=== PATIENT | female | born 1950 | race African-American/Black ===

== ENCOUNTER 2020-08-25 12:01 | Outpatient (CLI) | payer MEDICARE, SELFPAY ==
--- NOTE | ~2020-08-25 | DEXA_ITS ---
Bone Density Report Name: Dottie Gold Age: 70 Sex: Female Ethnicity: Black Date of : 1950 Indication: postmenopausal; hysterectomy; Referring Provider: SARINA HERNANDEZ Study: Bone densitometry was performed. Exam Date: August 25, 2020 Accession number: [id number] Bone Density: Region BMD T-score Z-score Classification AP Spine (L1-L4) 1.017 -0.3 1.1 Normal Femoral Neck (Left) 0.662 -1.7 -0.6 Osteopenia Total Hip (Left) 1.020 0.6 1.1 Normal Total Hip Bilateral Avg 0.967 0.2 0.8 Normal Femoral Neck (Right) 0.632 -2.0 -0.8 Osteopenia Total Hip (Right) 0.914 -0.2 0.4 Normal World Health Organization criteria for BMD impression classify patients as: Normal (T-score at or above -1.0), Osteopenia (T-score between -1.0 and -2.5), or Osteoporosis (T-score at or below -2.5). 10-year Fracture Risk(1): Major Osteoporotic Fracture 4.3% Hip Fracture 0.7% Reported Risk Factors: [place] (Black), Neck BMD=0.632, BMI=43.0 (1) FRAX(R) Version 3.08. Fracture probability calculated for an untreated patient. Fracture probability may be lower if the patient has received treatment. Previous Exams: Region Exam Age BMD T-score BMD Change BMD Change Date g/cm2 vs Baseline vs Previous AP Spine(L1-L4) 08/25/2020 70 1.017 -0.3 0.002(0.2%)# 0.013(1.3%) 08/19/2015 65 1.004 -0.4 -0.011(-1.1%)# 0.011(1.1%) 06/16/2013 62 0.993 -0.5 -0.022(-2.1%)# -0.045(-4.3%)# 06/09/2011 60 1.038 -0.1 0.023(2.3%)* 0.036(3.6%)* 05/27/2009 58 1.002 -0.4 -0.013(-1.3%) -0.013(-1.3%) 12/01/2005 55 1.015 -0.3 Total Hip(Left) 08/25/2020 70 1.020 0.6 -0.028(-2.7%)# 0.022(2.2%)# 08/19/2015 65 0.998 0.5 -0.050(-4.8%)# -0.065(-6.1%)# 06/16/2013 62 1.062 1.0 0.015(1.4%)# 0.127(13.5%)# 06/09/2011 60 0.936 -0.1 -0.112(-10.7%) -0.104(-10.0%) 05/27/2009 58 1.039 0.8 -0.009(-0.8%) -0.009(-0.8%) 12/01/2005 55 1.048 0.9 Total Hip(Right) 08/25/2020 70 0.914 -0.2 -0.086(-8.6%)# -0.062(-6.3%)* 08/19/2015 65 0.976 0.3 -0.024(-2.4%)# -0.036(-3.6%)* 06/16/2013 62 1.012 0.6 0.012(1.2%)# -0.010(-1.0%)# 06/09/2011 60 1.022 0.7 0.022(2.2%) 0.042(4.3%)* 05/27/2009 58 0.980 0.3 -0.020(-2.0%) -0.020(-2.0%) 12/01/2005 55 1.000 0.5 *Denotes significance at 95% confidence level, LSC for AP Spine = 0.022 g/cm2, LSC for Total Hip = 0.027 g/cm2 Clinical Information Provided by Patient: Has the following medical c
--- NOTE | ~2020-08-25 | MM_ITS ---
EXAMINATION: MM screening [facility] BI w [facility] HISTORY: Screening mammogram, family history of breast cancer in her sister. TECHNIQUE: Craniocaudal and mediolateral oblique 3-D tomosynthesis images were obtained and synthetic 2-D images were generated. CAD analysis was submitted and interpreted. COMPARISON: 07/09/2015, 06/25/2015, 06/18/2014 BREAST PARENCHYMAL COMPOSITION: There are scattered areas of fibroglandular density. FINDINGS: Bilateral breast masses demonstrate interval decrease in size, consistent with benign findi ngs. There is no evidence of suspicious mass, calcification, or architectural distortion to suggest m alignancy in either breast. There has been no suspicious interval change. IMPRESSION: 1. No mammographic evidence of malignancy. 2. Recommend routine screening mammography in one year. BI-RADS Category 2: Benign finding(s). Reviewed, dictated and finalized at location A.
== END 2020-08-25 12:02 | disposition home or self-care (01) ==
PROVIDERS: Visit Provider Obstetrics & Gynecology
DX: Z12.31 Encounter for screening mammogram for malignant neoplasm of breast (principal); Z78.0 Asymptomatic menopausal state; M85.852 Other specified disorders of bone density and structure, left thigh; M85.851 Other specified disorders of bone density and structure, right thigh
CPT/HCPCS: 77063; 77067; 77080

== ENCOUNTER 2021-09-28 12:31 | Outpatient (CLI) | payer MEDICARE, SELFPAY ==
--- NOTE | ~2021-09-28 | MM_ITS ---
EXAMINATION: MM screening [facility] w [facility] HISTORY: Screening mammogram TECHNIQUE: Craniocaudal and mediolateral oblique 3-D tomosynthesis images were obtained and synthetic 2-D images were generated. CAD analysis was submitted and interpreted. COMPARISON: 08/25/2020 bilateral screening mammogram 07/09/2015 diagnostic left mammogram 06/25/2015 bilateral screening mammogram BREAST PARENCHYMAL COMPOSITION: There are scattered areas of fibroglandular density. FINDINGS: There is a biopsy marker on the left; history of prior benign left breast biopsy in 2016. Scattered bilateral benign calcifications. Occasional bilateral benign circumscribed small masses and scattered bilateral benign calcifications are again noted. There is no evidence of suspicious mass, calcification, or architectural distortion to suggest malign efrain in either breast. There has been no suspicious interval change. IMPRESSION: 1. No mammographic evidence of malignancy. 2. Recommend routine screening mammography in one year. BI-RADS Category 2: Benign finding(s). Reviewed, dictated and finalized at location A. T GRADER OPERATOR
== END 2021-09-28 12:32 | disposition home or self-care (01) ==
LOC: ANHIMG 12:34
PROVIDERS: PCP Family Medicine; Visit Provider Obstetrics & Gynecology
DX: Z12.31 Encounter for screening mammogram for malignant neoplasm of breast (principal)
CPT/HCPCS: 77063; 77067

== ENCOUNTER 2022-11-09 15:01 | Outpatient (CLI) | payer MEDICARE, SELFPAY ==
--- NOTE | ~2022-11-09 | MM_ITS ---
EXAMINATION: MM screening [facility] w [facility] HISTORY: Screening TECHNIQUE: Craniocaudal and mediolateral oblique 3-D tomosynthesis images were obtained and synthetic 2-D images were generated. CAD analysis was submitted and interpreted. COMPARISON: Comparison to multiple prior studies sequentially, with oldest reviewed study dated 06/16. BREAST PARENCHYMAL COMPOSITION: Breast composed of scattered areas of fibroglandular density FINDINGS: Stable benign-appearing bilateral breast masses. There is no evidence of suspicious mass, c alcification, or architectural distortion to suggest malignancy in either breast. There has been no s uspicious interval change. IMPRESSION: 1. No mammographic evidence of malignancy. 2. Recommend routine screening mammography in one year. BI-RADS Category 2: Benign finding(s). Reviewed, dictated and finalized at location A. GENCY VEHICLE DISPATCHER
== END 2022-11-09 15:02 | disposition home or self-care (01) ==
PROVIDERS: PCP Family Medicine; Visit Provider Obstetrics & Gynecology
DX: Z12.31 Encounter for screening mammogram for malignant neoplasm of breast (principal)
CPT/HCPCS: 77063; 77067

== ENCOUNTER 2023-01-24 09:22 | Outpatient (CLI) | payer MEDICARE, SELFPAY ==
--- NOTE | ~2023-01-24 | DEXA_ITS ---
Bone Density Report Name: JOSE JUAN CHAUDHARY Age: 72 Sex: Female Ethnicity: Black Date of : 1950 Indication: postmenopausal; screening for osteoporosis; hysterectomy; Referring Provider: ADRIANA HILL Study: Bone densitometry was performed. Exam Date: January 24, 2023 Accession number: [id number] Bone Density: Region BMD T-score Z-score Classification AP Spine(L1-L4) 0.983 -0.6 1.0 Normal Femoral Neck (Left) 0.592 -2.3 -1.0 Osteopenia Total Hip (Left) 0.875 -0.6 0.2 Normal Femoral Neck (Right) 0.666 -1.6 -0.5 Osteopenia Total Hip (Right) 0.845 -0.8 0.0 Normal Total Hip Mean 0.860 -0.7 0.1 Normal World Health Organization criteria for BMD impression classify patients as: Normal (T-score at or above -1.0), Osteopenia (T-score between -1.0 and -2.5), or Osteoporosis (T-score at or below -2.5). 10-year Fracture Risk(1): Major Osteoporotic Fracture 5.3% Hip Fracture 1.2% Reported Risk Factors: [place] (Black), Neck BMD=0.592, BMI=42.7 (1) FRAX(R) Version 3.08. Fracture probability calculated for an untreated patient. Fracture probability may be lower if the patient has received treatment. Previous Exams: Region Exam Age BMD T-score BMD Change BMD Change Date g/cm2 vs Baseline vs Previous AP Spine (L1-L4) 01/24/2023 72 0.983 -0.6 -0.011 (-1.1%) -0.035 (-3.4%) 08/25/2020 70 1.017 -0.3 0.024 (2.4%)* 0.013 (1.3%) 08/19/2015 65 1.004 -0.4 0.011 (1.1%) 0.011 (1.1%) 06/16/2013 62 0.993 -0.5 Total Hip(Left) 01/24/2023 72 0.875 -0.6 -0.188 (-17.7% -0.145 (-14.2% 08/25/2020 70 1.020 0.6 -0.042 (-4.0%) 0.022 (2.2%)# 08/19/2015 65 0.998 0.5 -0.065 (-6.1%) -0.065 (-6.1%) 06/16/2013 62 1.062 1.0 Total Hip(Right) 01/24/2023 72 0.845 -0.8 -0.167 (-16.5% -0.069 (-7.5%) 08/25/2020 70 0.914 -0.2 -0.098 (-9.7%) -0.062 (-6.3%) 08/19/2015 65 0.976 0.3 -0.036 (-3.6%) -0.036 (-3.6%) 06/16/2013 62 1.012 0.6 *Denotes significance at 95% confidence level, LSC for AP Spine = 0.022 g/cm2, LSC for Total Hip = 0.027 g/cm2 # Denotes dissimilar scan types or analysis methods Clinical Information Provided by Patient: Has the following medical conditions: Hysterectomy Patient maximum height was 60 Menopause Age: 51 Drinks caffeinated beverages Onset of menses at age 12 Number of children 0 Impression: The patient has low bone mass, based on the Left F
== END 2023-01-24 09:23 | disposition home or self-care (01) ==
LOC: ANHIMG 09:23
PROVIDERS: PCP Family Medicine; Visit Provider Obstetrics & Gynecology
DX: Z78.0 Asymptomatic menopausal state (principal); M85.852 Other specified disorders of bone density and structure, left thigh; M85.851 Other specified disorders of bone density and structure, right thigh
CPT/HCPCS: 77080